=== PATIENT | female | born 1980 | race Caucasian/White ===

== ENCOUNTER 2021-10-29 20:22 | Inpatient (IN) | payer MEDICAID ==
[~2021-10-29] VITALS: Ht 167.6 cm; Wt 81.6 kg
[2021-10-29] MEDS ORDERED: PREN1TAB78 PO (22:02)
[2021-10-29] MEDS ORDERED: FERR325T6 PO (22:02)
[2021-10-29] MEDS ORDERED: DEXT 5%/LR + PITOCIN 20UNITS/L 1,000 ML IV SCH (22:30)
[2021-10-29] MEDS ORDERED: RHO(D) IMMUNE GLOBULIN 300 MCG/SYR IM NR (22:30)
[2021-10-29] MEDS ORDERED: CARBOPROST TROMETHAMINE 250 MCG/ML AMPUL IM PRN (22:30)
[2021-10-29] MEDS ORDERED: METHYLERGONOVINE MALEATE 0.2 MG/ML IM PRN (22:30)
[2021-10-29] MEDS ORDERED: BUTORPHANOL TARTRATE 2 MG/ML VIAL IV PRN (22:30)
[2021-10-29] MEDS ORDERED: CITRIC ACID/SODIUM CITRATE SOLN 30ML UDC PO PRN (22:45)
[2021-10-29] MEDS: LACTATED RINGERS 1,000 ML IV SCH ×2 (22:53→23:02)
[2021-10-29 23:06] LABS: BASOPHILS % 0.4 % (0.0-2.0); EOSINOPHILS % 0.6 % (0.0-5.0); HEMATOCRIT. 37.8 % (36.0-48.0); HEMOGLOBIN. 13.5 g/dL (12.0-16.0); LYMPHOCYTES % 11.1 % (20.0-50.0); MEAN CORPUSCULAR HEMOGLOBIN 29.7 pg (28.0-32.0); MEAN CORPUSCULAR VOLUME 82.9 fL (81.0-99.0); MEAN PLATELET VOLUME 10.8 fl (7.4-10.4); MONOCYTES % 5.7 % (2.0-8.0); NEUTROPHILS % 82.2 % (40.0-76.0); PLATELET 159 x1000/uL (130-400); RED BLOOD CELL COUNT 4.56 mill/uL (4.2-5.4); RED CELL DISTRIBUTION WIDTH 12.8 % (11.6-14.6)
[2021-10-29] MEDS ORDERED: CITRIC ACID/SODIUM CITRATE SOLN 30ML UDC PO ONE (23:15)
[2021-10-29 23:27] LABS: CLARITY URINE CLEAR (CLEAR); COLOR URINE YELLOW (YELLOW); KETONES URINE 1+ (NEGATIVE); LEUKOCYTE ESTERASE URINE 1+ (NEGATIVE); NITRITE URINE NEGATIVE (NEGATIVE); OCCULT BLOOD URINE 2+ (NEGATIVE); PH URINE 6.5 (4.5-8.0); PROTEIN URINE NEGATIVE (NEGATIVE); UROBILINOGEN URINE 0.2 E.U./dL (0.2-1.0)
[2021-10-29] MEDS ORDERED: DIPHENHYDRAMINE 50MG/ML VIAL ONE (23:34)
[2021-10-29] MEDS ORDERED: OXYTOCIN 10 UNITS/ML 1ML ONE (23:34)
[2021-10-29] MEDS ORDERED: EPHEDRINE SULFATE 50MG/ML VIAL ONE (23:34)
[2021-10-29] MEDS ORDERED: MORPHINE SULFATE/PF 1MG/ML 10ML AMP ONE (23:34)
[2021-10-29] MEDS ORDERED: FENTANYL CITRATE/PF 50MCG/ML 2ML VIAL ONE (23:34)
[2021-10-29] MEDS ORDERED: ONDANSETRON HCL 4MG/2ML INJ ONE (23:34)
[2021-10-29] MEDS ORDERED: CEFAZOLIN SODIUM 1000MG/VIAL ONE (23:34)
[2021-10-29] MEDS ORDERED: PHENYLEPHRINE HCL 10 MG/ML 1ML (IV VIAL) IV ONE (23:34)
[2021-10-29] MEDS ORDERED: SODIUM CHLORIDE 0.9% 10ML VIAL ONE (23:38)
[2021-10-29 23:45] LABS: INR 0.9; PARTIAL THROMBOPLASTIN TIME 28.8 sec (23.4-31.0); PROTHROMBIN TIME 9.9 sec (9.6-11.0)
[2021-10-29 23:46] LABS: *AMPHETAMINES SCREEN URINE NEGATIVE (NEGATIVE); *BARBITURATES SCREEN URINE NEGATIVE (NEGATIVE); *BENZODIAZEPINES SCREEN URINE NEGATIVE (NEGATIVE); *COCAINE SCREEN URINE NEGATIVE (NEGATIVE); METHADONE URINE SCREEN NEGATIVE (NEGATIVE)
[2021-10-29 23:47] LABS: CANNABINOID URINE SCREEN NEGATIVE (NEGATIVE); OPIATES URINE SCREEN NEGATIVE (NEGATIVE); PHENCYCLIDINE URINE SCREEN NEGATIVE (NEGATIVE)
[2021-10-30 00:54] LABS: HEPATITIS B SURFACE ANTIGEN NEGATIVE
[2021-10-30] MEDS ORDERED: ESMOLOL HCL 10MG/ML 10ML VIAL IV ONE (01:02)
[2021-10-30] MEDS ORDERED: KETOROLAC 60MG/2ML VIAL IM ONE (01:10)
[2021-10-30] MEDS ORDERED: RHO(D) IMMUNE GLOBULIN 300 MCG/SYR IM PRN (01:15)
[2021-10-30] MEDS ORDERED: NALOXONE HCL 0.4 MG/ML 1ML VIAL IV PRN (01:15)
[2021-10-30] MEDS ORDERED: BUTORPHANOL TARTRATE 2 MG/ML VIAL IV PRN (01:15)
[2021-10-30] MEDS ORDERED: DIPHENHYDRAMINE 25MG CAPSULE PO PRN (01:15)
[2021-10-30] MEDS ORDERED: HEMORRHOIDAL SUPP PR PRN (01:15)
[2021-10-30] MEDS ORDERED: DIPHENHYDRAMINE 50MG/ML VIAL IV PRN (01:15)
[2021-10-30] MEDS ORDERED: IBUPROFEN 400MG TABLET PO PRN (01:15)
[2021-10-30] MEDS ORDERED: DEXT 5%/LR + PITOCIN 20UNITS/L 1,000 ML IV SCH (01:15)
[2021-10-30] MEDS ORDERED: BISACODYL 10MG SUPP PR PRN (01:15)
[2021-10-30] MEDS ORDERED: DEXT 5%/LACTATED RINGERS 1,000 ML IV SCH (01:15)
[2021-10-30] MEDS ORDERED: LANOLIN OINT 7GM TUBE TOP PRN (01:15)
[2021-10-30] MEDS ORDERED: ONDANSETRON HCL 4MG/2ML INJ IV PRN (01:15)
[2021-10-30] MEDS ORDERED: ACETAMINOPHEN WITH CODEINE 300/30MG TABLET PO PRN (01:15)
[2021-10-30 03:30] VITALS: BP 107/58
[2021-10-30 03:55] VITALS: BP 112/59
[2021-10-30 04:30] VITALS: BP 107/59
[2021-10-30] MEDS: KETOROLAC 30MG/ML VIAL IV SCH ×2 (06:35→12:35)
[2021-10-30 06:51] LABS: HEMATOCRIT. 30.4 % (36.0-48.0); HEMOGLOBIN. 10.9 g/dL (12.0-16.0); MEAN CORPUSCULAR HEMOGLOBIN 29.7 pg (28.0-32.0); MEAN CORPUSCULAR VOLUME 83.1 fL (81.0-99.0); MEAN PLATELET VOLUME 10.7 fl (7.4-10.4); PLATELET 141 x1000/uL (130-400); RED BLOOD CELL COUNT 3.65 mill/uL (4.2-5.4)
[2021-10-30 07:30] VITALS: BP 102/50
[2021-10-30] MEDS: PRENATAL VIT/FE FUMARATE/FA TABLET PO SCH (08:23)
[2021-10-30] MEDS: MAGNESIUM/ALUMINUM HYDROXIDE/SIMETHICONE 30ML UDC PO SCH ×4 (08:23→21:19)
[2021-10-30] MEDS: SIMETHICONE 80MG TABLET CHEW PO SCH ×4 (08:24→21:18)
[2021-10-30] MEDS: IBUPROFEN 800MG TABLET PO PRN ×2 (14:39→21:20)
[2021-10-30 16:10] VITALS: BP 101/57
[2021-10-30 20:00] VITALS: BP 103/65
[2021-10-30] MEDS: DOCUSATE SODIUM 100MG CAPSULE PO SCH (21:18)
[2021-10-30 21:40] LABS: PLATELET ESTIMATE NORMAL
[2021-10-31 04:00] VITALS: BP 112/72
[2021-10-31] MEDS: IBUPROFEN 800MG TABLET PO PRN ×3 (05:01→21:45)
[2021-10-31 07:24] LABS: BASOPHILS % 0.2 % (0.0-2.0); EOSINOPHILS % 1.1 % (0.0-5.0); HEMATOCRIT. 28.9 % (36.0-48.0); HEMOGLOBIN. 10.1 g/dL (12.0-16.0); LYMPHOCYTES % 11.2 % (20.0-50.0); MEAN CORPUSCULAR HEMOGLOBIN 29.6 pg (28.0-32.0); MEAN PLATELET VOLUME 10.7 fl (7.4-10.4); MONOCYTES % 6.3 % (2.0-8.0); NEUTROPHILS % 81.2 % (40.0-76.0); PLATELET 146 x1000/uL (130-400); RED CELL DISTRIBUTION WIDTH 12.9 % (11.6-14.6)
[2021-10-31 08:00] VITALS: BP 114/55
[2021-10-31] MEDS: FERROUS SULFATE 325MG TABLET PO SCH ×3 (08:08→17:27)
[2021-10-31] MEDS: PRENATAL VIT/FE FUMARATE/FA TABLET PO SCH (08:08)
[2021-10-31] MEDS: MAGNESIUM/ALUMINUM HYDROXIDE/SIMETHICONE 30ML UDC PO SCH ×3 (08:08→17:27)
[2021-10-31] MEDS: SIMETHICONE 80MG TABLET CHEW PO SCH ×3 (08:08→17:27)
[2021-10-31 16:00] VITALS: BP 114/65
[2021-10-31 20:00] VITALS: BP 108/59
[2021-10-31] MEDS: DOCUSATE SODIUM 100MG CAPSULE PO SCH (21:45)
[2021-11-01] MEDS: IBUPROFEN 800MG TABLET PO PRN ×2 (04:55→17:43)
[2021-11-01 05:00] VITALS: BP 107/68
[2021-11-01 07:55] VITALS: BP 106/66
[2021-11-01] MEDS: PRENATAL VIT/FE FUMARATE/FA TABLET PO SCH (08:41)
[2021-11-01] MEDS: SIMETHICONE 80MG TABLET CHEW PO SCH ×3 (08:42→17:54)
[2021-11-01] MEDS: MAGNESIUM/ALUMINUM HYDROXIDE/SIMETHICONE 30ML UDC PO SCH ×3 (08:42→17:30)
[2021-11-01] MEDS: FERROUS SULFATE 325MG TABLET PO SCH ×3 (08:42→17:30)
[2021-11-01 16:00] VITALS: BP 115/60
[2021-11-01 20:30] VITALS: BP 111/68
[2021-11-01] MEDS: DOCUSATE SODIUM 100MG CAPSULE PO SCH (22:19)
[2021-11-02] MEDS ORDERED: IBUPROFEN 800MG TABLET ONE ×2 (00:44→05:33)
[2021-11-02] MEDS: IBUPROFEN 800MG TABLET PO PRN ×2 (00:47→05:39)
[2021-11-02 03:30] VITALS: BP 113/69
[2021-11-02] MEDS: MAGNESIUM/ALUMINUM HYDROXIDE/SIMETHICONE 30ML UDC PO SCH (07:30)
[2021-11-02] MEDS: FERROUS SULFATE 325MG TABLET PO SCH (07:30)
[2021-11-02 08:00] VITALS: BP 115/73
[2021-11-02] MEDS: SIMETHICONE 80MG TABLET CHEW PO SCH (08:00)
[2021-11-02] MEDS: PRENATAL VIT/FE FUMARATE/FA TABLET PO SCH (08:14)
[2021-11-02] MEDS ORDERED: IBUP-2030 PO (10:52)
== END 2021-11-02 13:15 | disposition home or self-care (01) | DRG 540 ==
LOC: OBSVTOIN 20:22 → 8 EST LDRP 20:22 → 8EST 10-30 03:20
PROVIDERS: ADMIT Obstetrics & Gynecology; ATTEND Obstetrics & Gynecology
PROC: 10D00Z1 Extraction of Products of Conception, Low, Open Approach (ICD-10-PCS; principal; 2021-10-30)
DX: O36.63X0 Maternal care for excessive fetal growth, third trimester, not applicable or unspecified (principal); O14.94 Unspecified pre-eclampsia, complicating childbirth; O77.0 Labor and delivery complicated by meconium in amniotic fluid; Z20.822 Contact with and (suspected) exposure to COVID-19; O90.81 Anemia of the puerperium; Z37.0 Single live birth; Z3A.38 38 weeks gestation of pregnancy
CPT/HCPCS: 36415; 80305; 81003; 85025; 86592; 86703; 86762; 86850; 86900; 87077; 87186; 87340; 87426; 88307; G0378; J0690; J1200; J1885; J2274; J2370; J2405; J2590; J3010; J3490; J7121; A4315